=== PATIENT | male | born 1985 | race Two or more races ===

== ENCOUNTER 2019-06-28 18:25 | Emergency (ER) | payer BC, OTHER ==
[~2019-06-28] VITALS: Ht 177.8 cm; Wt 83.0 kg
[2019-06-28] MEDS ORDERED: LIDOCAINE 1%-EPI 1:100,000 20 ML VIAL TP ONE (18:45)
--- NOTE | 2019-06-28 19:47 | NUR ---
SUTURES DONE BY DR. MAHAJAN, PATIENT TOLERATED PROCEDURE WELL. NON-ADHERENT DRESSING DONE. Patient discharged to home in stable conditon. Written and verbal after care instructions given. Patient verbalizes understanding of instructions. PATIENT DISCHARGED WITH STABLE GAIT.
[2019-06-28 19:49] VITALS: BP 130/79
== END 2019-06-28 19:50 | disposition home or self-care (01) ==
LOC: ER 18:34
DX: S81.811A Laceration without foreign body, right lower leg, initial encounter (principal); W20.8XXA Other cause of strike by thrown, projected or falling object, initial encounter; Y93.89 Activity, other specified; Y92.89 Other specified places as the place of occurrence of the external cause; Y99.8 Other external cause status
CPT/HCPCS: A4217; A4663

== ENCOUNTER 2019-07-14 13:04 | Emergency (ER) | payer BC, OTHER ==
[~2019-07-14] VITALS: Ht 177.8 cm; Wt 83.0 kg
--- NOTE | 2019-07-14 13:05 | NUR ---
pt ambulating with steady gait. A&O x4. here for suture removal on left calf. was cut by sheet metal x2 wks ago per pt. no redness / swelling noted around the site. patient denies any pain or discomfort. pulses palpable. patient able to move extremity freely. fall precautions implemented per protocol. call light within reach, s/r up x2
--- NOTE | 2019-07-14 13:13 | NUR ---
ERMD at bedside for MSE and suture removal. suture kit provided
[2019-07-14 13:20] VITALS: BP 126/77
--- NOTE | 2019-07-14 13:20 | NUR ---
Patient discharged to home in stable conditon. Written and verbal after care instructions given. Patient verbalizes understanding of instructions. pt ambulating with steady gait
== END 2019-07-14 13:20 | disposition home or self-care (01) ==
LOC: ER 13:04
DX: S81.812D Laceration without foreign body, left lower leg, subsequent encounter (principal); X58.XXXD Exposure to other specified factors, subsequent encounter
CPT/HCPCS: A4663